=== PATIENT | female | born 1980 | race Caucasian/White ===

== ENCOUNTER 2020-06-10 12:40 | Emergency (ER) | payer OTHER ==
[~2020-06-10] VITALS: Ht 170.2 cm; Wt 72.6 kg
[2020-06-10 12:55] LABS: URINE BILIRUBIN NEGATIVE (Negative); URINE BLOOD NEGATIVE (Negative); URINE CLARITY CLEAR; URINE COLOR YELLOW; URINE GLUCOSE-RANDOM NEGATIVE (Negative); URINE KETONES TRACE (Negative); URINE NITRITE-REFLEX NEGATIVE (Negative); URINE PROTEIN NEGATIVE (Negative); URINE SPECIFIC GRAVITY 1.015 (1.005-1.030)
[2020-06-10 12:57] LABS: URINE LEUKOCYTES-REFLEX 2+ (Negative)
[2020-06-10 13:06] LABS: CASTS None Seen /LPF (None Seen); CRYSTALS None Seen /LPF (None Seen); SQUAMOUS 4-10 Moderate /LPF (0-3); URINE RBC 0-2 Rare /HPF (0-2); URINE WBC-REFLEX 0-5 Rare /HPF (0-5)
[2020-06-10 13:13] LABS: ABSOLUTE EOSINOPHILS 0.1 thou/uL (0.0-0.7); ABSOLUTE LYMPHOCYTES 1.4 thou/uL (0.8-5.3); ABSOLUTE MONOCYTES 0.7 thou/uL (0.0-1.2); ABSOLUTE NEUTROPHILS 7.7 thou/uL (1.6-8.1); BASOPHILS 0.4 %; EOSINOPHILS 0.8 %; HEMATOCRIT 37.2 % (37.0-47.0); HEMOGLOBIN 12.1 gm/dL (12.0-15.0); MCH 26.3 pg (26.0-34.0); MCHC 32.5 g/dL (28.0-37.0); MONOCYTES 7.6 %; MPV 8.5 fl. (7.2-11.1); NUCLEATED RBCS 0 /100WBC; PLATELET COUNT* 251 thou/uL (150-400); POLYS 77.2 %; RBC 4.59 mil/uL (4.20-5.00); RDW-CV 15.1 % (10.5-14.5); WBC 9.9 thou/uL (4.0-11.0)
[2020-06-10 13:22] LABS: CREATININE 0.7 mg/dL (0.6-1.3)
[2020-06-10 13:59] VITALS: BP 103/52
== END 2020-06-10 14:01 | disposition home or self-care (01) ==
LOC: M.ERS 12:40
PROVIDERS: Nurse Practitioner
DX: K59.00 Constipation, unspecified (principal); M54.6 Pain in thoracic spine; Z98.890 Other specified postprocedural states